=== PATIENT | female | born 1955 | race Caucasian/White ===

== ENCOUNTER → 2017-09-22 17:20 | Outpatient (CLI) | payer MEDICARE, MEDICAID, SELFPAY ==
--- NOTE | 2017-09-22 | FLU_PTH ---
PATIENT: URSZULA GOODWIN LOC: [facility] U#:[id number] AGE/SX: 69/F ROOM: RE09/22/[address]: Dr. Sharona Iniguez MD : [id number] BED: DIS: SPEC #: [id number] RECD: 09/22/17 08:01 STATUS: JANEL CRISTOPHER #: [id number] MARICARMEN: 09/22/17 00:[address]: Sharona Iniguez DEPT: CYTOLOGY RECD BY: Chapin Hdez Tissues: A - Thyroid gland, NOS B - Thyroid gland, NOS Procedures: Pap Stain (control) Special Stain Group II Surgery Specimen Level IV Cell Block Cytospin Fluid Comments: @ Specimen number changed from [id number] to [id number] @ on 09/23/17 at 0904 by MELISSA. HEADER OPERATION: Ultrasound-guided fine needle aspiration of left thyroid PRE-OP DIAGNOSIS: Left thyroid nodules TISSUE SUBMITTED: A ? FNA left thyroid fluid for cytology, B ? FNA left thyroid 6 slides DIAGNOSIS CYTOLOGY A. Left thyroid nodule fluid for cytology, ultrasound-guided FNA (cytospin and cell block): Benign follicular cells and macrophages are noted. B. Left thyroid nodule, ultrasound-guided FNA (smears): Consistent with benign follicular nodule with cystic changes. See cytology study and comment. SJ:rg 09/26/17 COMMENT Correlation with clinical, radiologic findings and appropriate follow up are necessary. CYTOLOGY STUDY Slides are reviewed. The specimen is adequate for evaluation. The specimen consists of benign follicular cells and macrophages. CYTOLOGY GROSS A - Received is 30 ml of brown cloudy fluid labeled with the patient's name and and designated per the requisition as left thyroid. Submitted for cytology preparation including cell block. B - Received are six smears labeled with the patient's name and designated per the requisition as left thyroid. Submitted for staining. / 09/23/17 TC:5 CPT: 29510, 53232, 12929
== END ==
PROVIDERS: Visit Provider Surgery
DX: E04.1 Nontoxic single thyroid nodule (principal)
CPT/HCPCS: 88108; 88305; 88313

== ENCOUNTER → 2020-01-08 05:30 | Outpatient (REF) | payer MEDICARE, SELFPAY | LOC: OLS.ACW200 05:30 | PROVIDERS: Referring Provider Family Medicine; Visit Provider Family Medicine | DX: Z11.59 Encounter for screening for other viral diseases (principal); I63.9 Cerebral infarction, unspecified; R53.1 Weakness; E78.5 Hyperlipidemia, unspecified; I25.119 Atherosclerotic heart disease of native coronary artery with unspecified angina pectoris; J44.9 Chronic obstructive pulmonary disease, unspecified | CPT/HCPCS: 87635; U0003 ==

== ENCOUNTER → 2020-04-08 19:00 | Outpatient (CLI) | payer SELFPAY ==
[2020-04-08 12:20] LABS: Color, Urine Yellow (Yellow); Glucose, Dipstick Normal (Normal); Ketone-Dipstick Negative (Negative); Leukocyte Esterase-Dipstick 500 /ul (Negative); Nitrite-Dipstick Negative (Negative); Occult Blood-Urine 250 /ul (Negative); Protein-Dipstick 30 mg/dl (Negative); Urine Bilirubin Dipstick Negative (Negative); Urine Clarity Cloudy (Clear); Urine Urobilinogen Normal (Normal)
== END ==
PROVIDERS: PCP Nurse Practitioner Acute Care; Referring Provider Family Medicine; Visit Provider Family Medicine
DX: N39.0 Urinary tract infection, site not specified (principal)
CPT/HCPCS: 81002; 87077; 87086; 87088; 87186